=== PATIENT | female | born 1955 | race Caucasian/White ===

== ENCOUNTER 2022-07-20 18:30 | Emergency (ER) | payer MEDICARE, OTHER ==
--- NOTE | 2022-07-20 19:18 | XRAY Report ---
PROCEDURE: Elbow 3 View LT INDICATIONS: FELL/PAIN/TENDERNESS L ELBOW TECHNIQUE: 3 views of the elbow were acquired. COMPARISON: None. FINDINGS: Bones: There is mild nondisplaced deformity along the proximal radial head. Soft tissues: Mild effusion. No suspicious soft tissue calcifications or masses. IMPRESSION: Mild effusion with mild deformity of the proximal radial head most consistent with fracture. Reviewed by: Jeannette Banks MD on 07/20/2022 7:16 PM PDT Approved by: Jeannette Banks MD on 07/20/2022 7:16 PM PDT Station ID: [id number]
--- NOTE | 2022-07-20 19:28 | ED Physician Documentation ---
History of Present Illness - Stated complaint Stated Complaint: FALL,L ELBOW INJ - Chief complaint Chief Complaint: Ext Problem - Additonal information Additional information: 66-year-old female who is visiting the [place] for the weekend presents emergency department for evaluation of acute left elbow pain. She accidentally tripped and struck her elbow on hard concrete. Has pain and swelling since. Difficulty moving the arm. No history of previous injury. She is right arm dominant. She did not strike her head or lose consciousness. She is not anticoagulated. Denies pain elsewhere. Patient is a good historian. 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: Hysterectomy HEENT: Tonsil/Adenoidectomy - Allergies Allergies/Adverse Reactions: Allergies Allergy/AdvReac Type Severity Reaction Status Date / Time meperidine [From Demerol] AdvReac Unknown Verified 07/20/22 18:49 - Social History Does the pt smoke?: Yes Smoking Status: Current every day smoker Does the pt drink ETOH?: Yes Does the pt have substance abuse?: No - Immunizations Immunizations: TDAP >10years/unknown - POLST Patient has POLST: No PD ED PE NORMAL - General General: Alert and oriented X 3, No acute distress, Well developed/nourished - Extremities Extremities: Other (Tenderness to the proximal radial region of the left elbow. Reduced flexion extension secondary to pain. Mild ecchymosis. No open sores or lesions. 2+ radial pulse. Neurovascularly intact.) Results - Vitals Vitals: Vital Signs - 24 hr 07/20/22 18:43 Temperature 36.5 C Heart Rate 84 Respiratory 17 Rate Blood Pressure 149/84 H O2 Saturation 99 Oxygen O2 Source Room air - Rads (name of study) left elbow Relevant Findings:: Final report received (Mild effusion with mild deformity the proximal radial head most consistent with fracture) PD Medical Decision Making - ED course Complexity details: reviewed results, re-evaluated patient, d/w patient ED course: 66-year-old female presents emergency department for evaluation of acute left elbow pain sustained after a fall. The x-ray shows an effusion and mild deformity of the proximal radial head consistent with early fracture. Patient was placed in a posterior splint and given a sling. She declined narcotics. I recommended Tylenol and ibuprofen. She does have an orthopedic surgeon in [place] that she will follow-up with when she returns Sunday. Usual splint care and emergent return precautions discussed Departure - Departure Disposition: Home, Self Care Clinical Impression: Fracture, proximal radius or ulna, closed Qualifiers: Encounter type: initial encounter Laterality: right Qualified Code(s): S52.91XA - Unspecified fracture of right forearm, initial encounter for closed fracture Condition: Stable Record reviewed to determine appropriate education?: Yes Instructions: ED Fx Radial Head Comments: Hemalatha the x-ray of your elbow shows a fracture of the proximal radial head. Most often these are placed in a splint for short period of time up to a week and then the splint is removed and patients are allowed to range their arm freely. I encourage you to follow closely with your orthopedic surgeon when you return to [place]. In the short-term you can use Tylenol and ibuprofen. If you find that your splint is too uncomfortable, you have discolored fingers loss of sensation in your fingers or feel that the splint is miss fitting then please return to the ER for second evaluation. Your splint cannot get wet in the shower so please use a bag when showering
[2022-07-20 19:59] VITALS: BP 155/84
== END 2022-07-20 20:00 | disposition home or self-care (01) ==
LOC: ED 18:30
DX: S52.91XA Unspecified fracture of right forearm, initial encounter for closed fracture (principal); S52.122A Displaced fracture of head of left radius, initial encounter for closed fracture; W01.0XXA Fall on same level from slipping, tripping and stumbling without subsequent striking against object, initial encounter; F17.200 Nicotine dependence, unspecified, uncomplicated
CPT/HCPCS: 99283